=== PATIENT | female | born 1950 | race Caucasian/White ===

== ENCOUNTER 2017-02-14 12:52 | Emergency (ER) | payer MEDICARE, OTHER ==
[2017-02-14 12:53] VITALS: BMI 23.8
[2017-02-14] MEDS ORDERED: Naproxen 550 mg Tab PO STA (13:12)
--- NOTE | 2017-02-14 13:19 | ED PDOC ---
Arrival/HPI - General Chief Complaint: Lower Extremity Problem/Injury Time Seen by Provider: 02/14/17 13:08 Historian: Patient - History of Present Illness Narrative History of Present Illness (Text): 02/14/17 13:08 Cehtna Johansen is a 66 year old female who presents to the emergency department complaining of right foot pain after she hit it against a wall yesterday. Patient indicates that her pain localizes to her right 4th toe. Patient has no other complaints at this time. PMD: Dr. Rocha Time/Duration: 24 hours Symptom Onset: Gradual Symptom Course: Unchanged Severity Level: Mild Activities at Onset: Light Context: Home Past Medical History - Provider Review Nursing Documentation Reviewed: Yes - Infectious Disease Hx of Infectious Diseases: None - Tetanus Immunization Tetanus Immunization: Unknown - Cardiac Hx Cardiac Disorders: Yes Hx Hypertension: Yes - Pulmonary Hx Respiratory Disorders: Yes Hx Asthma: Yes Hx Bronchitis: Yes Hx Pneumonia: Yes - Neurological Hx Neurological Disorder: No - HEENT Hx HEENT Disorder: No (WEARS RX GLASSES) - Renal Hx Renal Disorder: No - Endocrine/Metabolic Hx Endocrine Disorders: No - Hematological/Oncological Hx Blood Disorders: No - Integumentary Hx Dermatological Disorder: No - Musculoskeletal/Rheumatological Hx Musculoskeletal Disorders: No Hx Falls: No - Gastrointestinal Hx Gastrointestinal Disorders: Yes (GI BLEED,COLITIS) - Genitourinary/Gynecological Hx Genitourinary Disorders: No (C SECTION X 2, TUBAL LIGATION) - Psychiatric Hx Psychophysiologic Disorder: No Hx Substance Use: No - Surgical History Hx Section: Yes Other/Comment: X 2 - Anesthesia Hx Anesthesia: Yes Hx Anesthesia Reactions: No Hx Malignant Hyperthermia: No - Suicidal Assessment Feels Threatened In Home Enviroment: No Family/Social History - Physician Review Nursing Documentation Reviewed: Yes Family/Social History: No Known Family HX Smoking Status: Light Smoker < 10 Cigarettes Daily Hx Alcohol Use: No Hx Substance Use: No Hx Substance Use Treatment: Yes Allergies/Home Meds Allergies/Adverse Reactions: Allergies No Known Allergies Allergy (Verified 02/14/17 13:03) Review of Systems - Physician Review All systems were reviewed & negative as marked: Yes - Review of Systems Constitutional: absent: Fevers, Night Sweats Eyes: absent: Vision Changes ENT: absent: Hearing Changes Respiratory: absent: SOB, Cough Cardiovascular: absent: Chest Pain Gastrointestinal: absent: Abdominal Pain Genitourinary Female: absent: Dysuria Musculoskeletal: Other (Right 4th toe pain). absent: Arthralgias Skin: absent: Rash, Pruritis Neurological: absent: Headache Endocrine: absent: Diaphoresis Hemo/Lymphatic: absent: Adenopathy Psychiatric: absent: Depression Physical Exam Vital Signs Reviewed: Yes Vital Signs Temp Pulse Resp BP Pulse Ox 02/14/17 13:02 98.8 F 79 16 169/120 H 97 Temperature: Afebrile Blood Pressure: Hypertensive Pulse: Regular Respiratory Rate: Normal Appearance: Positive for: Well-Appearing, Non-Toxic, Comfortable Pain Distress: None Mental Status: Positive for: Alert and Oriented X 3 - Systems Exam Head: Present: Atraumatic, Normocephalic Pupils: Present: PERRL Extroacular Muscles: Present: EOMI Conjunctiva: Present: Normal Mouth: Present: Moist Mucous Membranes Neck: Present: Normal Range of Motion Respiratory/Chest: Present: Clear to Auscultation, Good Air Exchange. No: Respiratory Distress, Accessory Muscle Use Cardiovascular: Present: Regular Rate and Rhythm, Normal S1, S2. No: Murmurs Abdomen: Present: Normal Bowel Sounds. No: Tenderness, Distention, Peritoneal Signs Back: Present: Normal Inspection Upper Extremity: Present: Normal Inspection. No: Cyanosis, Edema Lower Extremity: Present: Swelling (swelling to right 4th two with ecchymosis and tenderness) Neurological: Present: GCS=15, CN II-XII Intact, Speech Normal Skin: Present: Warm, Dry, Normal Color. No: Rashes Psychiatric: Present: Alert, Oriented x 3, Normal Insight, Normal Concentration Medical Decision Making ED Course and Treatment: 02/14/17 13:28 Impression: 66 year old female complaining of right 4th toe pain since yesterday. Differential Diagnosis include but are not limited to: Plan: -- Right Foot X-ray -- Anaprox -- Reassess and disposition Prior Visits: Notes and results from previous visits were reviewed. Patient last seen in ED on 11/17/14 for worsening wheezing for one week. Patient was admitted to hospitalist care for further evaluation. Progress Notes: - RAD Interpretation Radiology Orders: 02/14/17 13:12 FOOT RIGHT 3 VIEWS ROUTINE [RAD] Stat - Medication Orders Current Medication Orders: Discontinued Medications Naproxen (Anaprox Ds) 550 mg PO STAT STA Stop: 02/14/17 13:13 Last Admin: 02/14/17 13:41 Dose: 550 mg - Scribe Statement The provider has reviewed the documentation as recorded by the Sharda Marin Provider Scribe Attestation: All medical record entries made by the Scribe were at my direction and personally dictated by me. I have reviewed the chart and agree that the record accurately reflects my personal performance of the history, physical exam, medical decision making, and the department course for this patient. I have also personally directed, reviewed, and agree with the discharge instructions and disposition. Disposition/Present on Arrival - Present on Arrival Any Indicators Present on Arrival: No History of DVT/PE: No History of Uncontrolled Diabetes: No Urinary Catheter: No History of Decub. Ulcer: No History Surgical Site Infection Following: None - Disposition Have Diagnosis and Disposition been Completed?: Yes Diagnosis: Toe sprain Disposition: HOME/ ROUTINE Disposition Time: 02:00 Patient Problems: Current Active Problems Problem Status Onset Toe sprain Acute Condition: STABLE Discharge Instructions (ExitCare): Foot Sprain (ED) Additional Instructions: please follow up wiht your doctor and specialist. return to er with worsening symptoms or concerns. Prescriptions: Naproxen 500 mg PO BID PRN #14 tab PRN Reason: Pain, Mild (1-3) Referrals: Aj OREILLY,Ad Hunter MD [Primary Care Provider] - Follow up with primary Cary Driver DPM [Staff Provider] - Follow up with primary
--- NOTE | 2017-02-14 13:47 | RAD ---
PROCEDURE: Right Foot Radiographs. HISTORY: trauma COMPARISON: None. FINDINGS: BONES: Normal. No fracture. JOINTS: Normal. SOFT TISSUES: Normal. OTHER FINDINGS: None. IMPRESSION: No acute findings
[2017-02-14 14:03] VITALS: BP 148/52; PULSE 75; RESP 20; TEMP 98.3; O2SAT 98
== END 2017-02-14 14:03 | disposition home or self-care (01) ==
LOC: ED 12:52
DX: S93.504A Unspecified sprain of right lesser toe(s), initial encounter (principal); W22.01XA Walked into wall, initial encounter; Y92.009 Unspecified place in unspecified non-institutional (private) residence as the place of occurrence of the external cause

== ENCOUNTER 2017-10-12 11:16 | Emergency (ER) | payer MEDICARE ==
[2017-10-12 11:44] VITALS: RESP 18; BMI 26.5
[2017-10-12] MEDS ORDERED: Magnesium Sulfate 1 gm in D5W 1 GM/100 ML BAG IVPB ONE (12:03)
[2017-10-12] MEDS ORDERED: guaiFENesin DM 200 mg-20 mg/10 ml UD PO PRN (12:04)
--- NOTE | 2017-10-12 12:11 | ED PDOC ---
Arrival/HPI - General Chief Complaint: Shortness Of Breath Time Seen by Provider: 10/12/17 11:41 Historian: Patient - History of Present Illness Narrative History of Present Illness (Text): 10/12/17 12:06 Pt p/w + ~ 2 weeks onset of persistent sob/worsening coughing, with productive white sputum, non-bloody; pt states + sick contact 2-3 weeks ago; pt states no fever/chills/sweats, + left chest pain/arm pain; pt states + sob intermittently , no abd pain, no n/v, no numbness/tingling, no urinary/bowel changes; pt denied rashes; pt seen her PCP, Dr Rocha last week and started patient on steriods and NSIADS, pt states medications are not helping; pt states no loc, no fall/trauma/travel; pt is here for further eval; pt's without other complaints. PCP: Rodger Rocha Time/Duration: > week (2 weeks) Symptom Onset: Gradual Symptom Course: Worsening Quality: Tightness, Stabbing Severity Level: 7, Severe Activities at Onset: Rest Context: Home Past Medical History - Provider Review Nursing Documentation Reviewed: Yes - Travel History Have you recently traveled outside [place] w/in the past 3 mons?: No - Past History Past History: No Previous - Infectious Disease Hx of Infectious Diseases: None - Tetanus Immunization Tetanus Immunization: Unknown - Reproductive Menopause: Yes - Cardiac Hx Cardiac Disorders: Yes Hx Hypertension: Yes - Pulmonary Hx Respiratory Disorders: Yes Hx Asthma: Yes Hx Bronchitis: Yes Hx Pneumonia: Yes - Neurological Hx Neurological Disorder: No - HEENT Hx HEENT Disorder: No (WEARS RX GLASSES) - Renal Hx Renal Disorder: No - Endocrine/Metabolic Hx Endocrine Disorders: No - Hematological/Oncological Hx Blood Disorders: No - Integumentary Hx Dermatological Disorder: No - Musculoskeletal/Rheumatological Hx Musculoskeletal Disorders: No Hx Falls: No - Gastrointestinal Hx Gastrointestinal Disorders: Yes (GI BLEED,COLITIS) - Genitourinary/Gynecological Hx Genitourinary Disorders: No (C SECTION X 2, TUBAL LIGATION) - Psychiatric Hx Psychophysiologic Disorder: No Hx Substance Use: No - Surgical History Hx Section: Yes Other/Comment: X 2 - Anesthesia Hx Anesthesia: Yes Hx Anesthesia Reactions: No Hx Malignant Hyperthermia: No - Suicidal Assessment Feels Threatened In Home Enviroment: No Family/Social History - Physician Review Nursing Documentation Reviewed: Yes Family/Social History: No Known Family HX Smoking Status: Light Smoker < 10 Cigarettes Daily Hx Alcohol Use: No Hx Substance Use: No Hx Substance Use Treatment: Yes Allergies/Home Meds Allergies/Adverse Reactions: Allergies No Known Allergies Allergy (Verified 02/14/17 13:03) Review of Systems - Review of Systems Constitutional: Normal Eyes: Normal ENT: Normal Respiratory: SOB, Cough, Sputum, Wheezing Cardiovascular: Chest Pain Gastrointestinal: Normal Genitourinary Female: Normal Musculoskeletal: Normal Skin: Normal Neurological: Normal Endocrine: Normal Hemo/Lymphatic: Normal Psychiatric: Normal Physical Exam Vital Signs Reviewed: Yes Vital Signs Temp Pulse Resp BP Pulse Ox 10/12/17 14:44 100.3 F H 85 18 176/104 H 94 L 10/12/17 11:44 99.4 F 94 H 18 112/64 100 10/12/17 11:42 99.7 F H 92 H 20 175/94 H 97 Temperature: Afebrile Blood Pressure: Hypertensive Pulse: Regular Respiratory Rate: Tachypneic Appearance: Positive for: Well-Appearing, Other (uncomfortable, + persistent coughing with intermittent productive sputum; alert/awake, mild distress due to sob, cooperative, follows command with ease) Pain Distress: Mild Mental Status: Positive for: Alert and Oriented X 3 - Systems Exam Head: Present: Atraumatic, Normocephalic, Other (mild bi-temporal wasting) Pupils: Present: PERRL, Other (no nystagmus, no photophobia, sclera anicteric) Extroacular Muscles: Present: EOMI Conjunctiva: Present: Normal Ears: Present: Normal Mouth: Present: Moist Mucous Membranes, Normal Teeth, Other (no drooling/stridor , no exudate/lesions) Pharnyx: Present: Normal Nose (External): Present: Atraumatic Nose (Internal): Present: Normal Inspection Neck: Present: Normal Range of Motion, Trachea Midline, Other (no meningeal signs, no midline tenderness, no step off). No: MIDLINE TENDERNESS Respiratory/Chest: Present: Other (+ wheezing b/l, + sob, no rales/rhonchi, no accessory muscle use noted, no retractions, + mild tachypenia; fair aiwary exchange) Cardiovascular: Present: Regular Rate and Rhythm, Normal S1, S2, Other (no murmur) Abdomen: Present: Normal Bowel Sounds, Other (well nourished female, no focal tenderness, no masses/rebound/guarding/rigidity, no walker's sign, no mcburney' s point tenderness) Back: Present: Normal Inspection. No: Midline Tenderness Upper Extremity: Present: Normal Inspection, NORMAL PULSES, Neurovascularly Intact, Capillary Refill < 2s, Other (decr ROM to left shoulder, + diffuse tenderness is noted, strength 5/5 grossly intact in all limbs, neurovasc intact b/l) Lower Extremity: Present: Normal Inspection, NORMAL PULSES, Normal ROM, Neurovascularly Intact, Capillary Refill < 2 s. No: CALF TENDERNESS, Tenderness , Swelling Neurological: Present: GCS=15, CN II-XII Intact, Speech Normal Skin: Present: Warm, Normal Color, Other (cap refill < 1sec, no ulcerations, no petechiae) Psychiatric: Present: Alert, Oriented x 3, Normal Insight Medical Decision Making ED Course and Treatment: 10/12/17 12:14 Impression: sob, coughing, wheezing, chest pain i have consider all the differential diagnosis regarding pt's chief medical complaints/clinical findings, including but are not limited to: r/o ACS, r/o infectious A/P: chest pain, sob - labs - iv - acs eval - xray - observe - supportive care 10/12/17 1300 after treatments, pt's breathing appearing easier, pt felt some improvement due to pt's symptoms, recommended patient for admission pt refused pt states she has to care for her sick pt would like to AMA pt states she wants to leave AMA she is aware that potential life-threatening illness remains and pt can lose limb/or worse case, can Patient is aware that if she changes her mind, she is encouraged to return to ED immediately for further care/management 14:25 - i spoke to Dr Rocha, pt's PCP, made aware of pt's ED presentation, medical complaints, will f/u with patient in the morning, agrees with ED mgt/txt Re-evaluation Time: 13:31 Reassessment Condition: Improving,but remains with symptoms - Lab Interpretations Lab Results: 10/12/17 12:35 10/12/17 12:35 Lab Results 10/12/17 12:35: Sodium 142, Chloride 103, Potassium 4.0, Carbon Dioxide 28, Anion Gap 14, BUN 22 H, Creatinine 0.8, Est GFR ( Amer) > 60, Est GFR ( Non-Af Amer) > 60, Random Glucose 79, Calcium 9.3, Total Bilirubin 0.7, AST 24, ALT 23, Alkaline Phosphatase 61, Lactate Dehydrogenase 428, Total Creatine Kinase 50, Troponin I < 0.01, NT-Pro-B Natriuret Pep 316, Total Protein 6.8, Albumin 4.1, Globulin 2.7, Albumin/Globulin Ratio 1.5 10/12/17 12:35: pO2 31, VBG pH 7.36, VBG pCO2 61.0 H, VBG HCO3 34.5 H, VBG Total CO2 36.4 H, VBG O2 Sat (Calc) 62.5, VBG Base Excess 7.0 H, VBG Potassium 4.4, Sodium 138.0, Chloride 104.0, Glucose 80, Lactate 1.8, FiO2 21.0, Venous Blood Potassium 4.4 10/12/17 12:35: WBC 12.4 H, RBC 4.78, Hgb 14.7, Hct 45.0, MCV 94.1, MCH 30.8, MCHC 32.7, RDW 13.6, Plt Count 274, MPV 9.4, Gran % 55.8, Lymph % (Auto) 39.2 H , Ness % (Auto) 4.7, Eos % (Auto) 0.2 L, Baso % (Auto) 0.1, Gran # 6.92 H, Lymph # (Auto) 4.9 H, Ness # (Auto) 0.6, Eos # (Auto) 0.0, Baso # (Auto) 0.01 I have reviewed the lab results: Yes Interpretation: Abnormal lab values (mildly elevated WBCs) - RAD Interpretation Narrative RAD Interpretations (Text): 10/12/17 15:02 HISTORY: sob, cough COMPARISON: 11/17/2014 TECHNIQUE: Chest PA and lateral FINDINGS: LUNGS: No active pulmonary disease. PLEURA: No significant pleural effusion identified. No pneumothorax apparent. CARDIOVASCULAR: Normal. OSSEOUS STRUCTURES: No significant abnormalities. VISUALIZED UPPER ABDOMEN: Normal. OTHER FINDINGS: None. IMPRESSION: No active disease. Radiology Orders: 10/12/17 12:01 CHEST TWO VIEWS (PA/LAT) [RAD] Stat Denier Control Operator: Radiologist - EKG Interpretation EKG Interpretation (Text): 10/12/17 12:15 NSR at 90 BPM, normal axis, no ectopy, no st-t changes, NORMAL EKG; unchanged compare with old ekg 10/2014 Interpreted by ED Physician: Yes Type: 12 lead EKG Comparison: Similar to previous EKG - Medication Orders Current Medication Orders: Guaifenesin/Dextromethorphan (Robitussin Dm) 10 ml PO Q4H PRN PRN Reason: Cough Last Admin: 10/12/17 12:35 Dose: 10 ml Discontinued Medications Acetaminophen (Tylenol 325mg Tab) 975 mg PO STAT STA Stop: 10/12/17 14:46 Albuterol/Ipratropium (Duoneb 3 Mg/0.5 Mg (3 Ml) Ud) 3 ml IH Q15M XAVI Stop: 10/12/17 12:46 Last Admin: 10/12/17 12:35 Dose: 3 ml Aspirin (Aspirin Chewable) 81 mg PO STAT STA Stop: 10/12/17 12:05 Last Admin: 10/12/17 12:35 Dose: 81 mg Magnesium Sulfate/Dextrose (Magnesium Sulfate 1 Gm/100 Ml D5w) 1 gm in 100 mls @ 100 mls/hr IVPB ONCE ONE Stop: 10/12/17 13:02 Last Admin: 10/12/17 12:34 Dose: 100 mls/hr eMAR Start Stop Document 10/12/17 12:34 GMD (Rec: 10/12/17 12:34 GMD [id number]) Intravenous Solution Start Date 10/12/17 Start Time 12:34 End Date 10/12/17 End time 13:34 Total Infusion Time 60 Methylprednisolone (Solu-Medrol) 125 mg IVP STAT STA Stop: 10/12/17 12:04 Last Admin: 10/12/17 12:34 Dose: 125 mg IVP Administration Document 10/12/17 12:34 GMD (Rec: 10/12/17 12:34 GMD [id number]) Charges for Administration # of IVP Administrations 1 Disposition/Present on Arrival - Present on Arrival Any Indicators Present on Arrival: No History of DVT/PE: No History of Uncontrolled Diabetes: No Urinary Catheter: No History of Decub. Ulcer: No History Surgical Site Infection Following: None - Disposition Have Diagnosis and Disposition been Completed?: Yes Diagnosis: COPD exacerbation, Bronchitis, Shortness of breath Disposition: AGAINST MEDICAL ADVICE Disposition Time: 13:32 Patient Plan: Other (AGAINST MEDICAL ADVICE) Patient Problems: Current Active Problems Problem Status Onset Bronchitis Acute COPD exacerbation Acute Shortness of breath Acute Condition: STABLE Discharge Instructions (ExitCare): Acute Bronchitis, COPD Including Emphysema ( DC), Shortness of Breath (Dyspnea) (DC) Print Language: MARSHALLESE Additional Instructions: You need to see your doctor as soon as possible you are leaving against medical advice potential life-threatening illness remains and pt can lose limb/or worse case, can you are to see your doctor as soon as possible if you change your mind, you are encouraged to return to ED immediately for further care/management Prescriptions: Albuterol HFA [Ventolin HFA 90 mcg/actuation (8 g)] 1 puff IH QID PRN #1 inhaler PRN Reason: Wheezing Azithromycin [Z-Sha] 250 mg PO DAILY #6 tab Referrals: Aj OREILLY,Ad Hunter MD [Primary Care Provider] - Follow up with primary Forms: [employer] (Georgian)
[2017-10-12] MEDS: Albuterol-Ipratrop 3 mg / 0.5 (3 ml) UD IH SCH ×3 (12:35→13:20)
[2017-10-12 12:47] LABS: BASO # 0.01 K/mm3 (0.0-2.0); BASO % 0.1 % (0.0-3.0); EOS % 0.2 % (1.5-5.0); GRAN # 6.92 (1.4-6.5); GRAN % 55.8 % (50.0-68.0); HEMOGLOBIN 14.7 g/dL (12.0-16.0); LYMPH # 4.9 (1.2-3.4); LYMPH % 39.2 % (22.0-35.0); MEAN CELL VOLUME 94.1 fl (80.0-105.0); MEAN CORPUSCULAR HEMOGLOBIN 30.8 pg (25.0-35.0); MEAN CORPUSCULAR HGB CONC 32.7 g/dl (31.0-37.0); MEAN PLATELET VOLUME 9.4 fl (7.0-11.0); MONO # 0.6 (0.1-0.6); MONO % 4.7 % (1.0-6.0); RBC 4.78 10^6/uL (3.5-6.1); RED CELL DISTRIBUTION WIDTH 13.6 % (11.5-14.5); VENOUS BLOOD GAS PO2 31 mm/Hg (30-55); VENOUS BLOOD PH 7.36 (7.32-7.43); WHITE BLOOD COUNT 12.4 10^3/ul (4.5-11.0)
[2017-10-12 12:56] LABS: ALB/GLOB RATIO 1.5 (1.1-1.8); ALBUMIN 4.1 g/dL (3.0-4.8); ALT/SGPT 23 U/L (7-56); AST/SGOT 24 U/L (14-36); BLOOD UREA NITROGEN 22 mg/dL (7-21); CALCIUM 9.3 mg/dL (8.4-10.5); GFR AFRICAN-AMERICAN > 60; GFR NON-AFRICAN AMERICAN > 60
[2017-10-12 13:08] LABS: B-TYPE NATRIURETIC PEPTIDE 316 pg/mL (0-450); TROPONIN I < 0.01 ng/mL
[2017-10-12 14:22] LABS: URINE BILIRUBIN NEGATIVE (NEGATIVE); URINE BLOOD SMALL (NEGATIVE); URINE GLUCOSE (UA) NEGATIVE (NEGATIVE); URINE LEUKOCYTE ESTERASE NEGATIVE Leu/uL (NEGATIVE); URINE NITRATE NEGATIVE (NEGATIVE); URINE PROTEIN NEGATIVE mg/dL (<30 mg/dL); URINE UROBILINOGEN 0.2 E.U./dL (<1 E.U./dL)
[2017-10-12 14:53] LABS: URINE APPEARANCE CLEAR (CLEAR); URINE COLOR LIGHT YELLOW (YELLOW)
--- NOTE | 2017-10-12 14:54 | RAD ---
HISTORY: sob, cough COMPARISON: 11/17/2014 TECHNIQUE: Chest PA and lateral FINDINGS: LUNGS: No active pulmonary disease. PLEURA: No significant pleural effusion identified. No pneumothorax apparent. CARDIOVASCULAR: Normal. OSSEOUS STRUCTURES: No significant abnormalities. VISUALIZED UPPER ABDOMEN: Normal. OTHER FINDINGS: None. IMPRESSION: No active disease.
[2017-10-12 14:55] LABS: URINE WBC NEGATIVE /hpf (0-6)
[2017-10-12 15:29] VITALS: BP 144/92; O2SAT 96
[2017-10-12 15:56] VITALS: PULSE 83; TEMP 99.1
--- NOTE | 2017-10-12 21:23 | CARD ---
APPROVED REPORT EKG Measurement Heart [id number] <Conclusion> Normal sinus rhythm Normal ECG
== END 2017-10-12 16:06 | disposition left against medical advice (07) ==
LOC: ED 11:16
DX: J44.1 Chronic obstructive pulmonary disease with (acute) exacerbation (principal); J40 Bronchitis, not specified as acute or chronic; R06.02 Shortness of breath; I10 Essential (primary) hypertension; F17.210 Nicotine dependence, cigarettes, uncomplicated
CPT/HCPCS: 71046; 80053; 81001; 82550; 82803; 83615; 83880; 84484; 85025; 93005; 96365; 96375; 99284; J2930; J3475

== ENCOUNTER 2018-01-04 15:31 | Emergency (ER) | payer MEDICARE ==
[2018-01-04 15:31] VITALS: BMI 26.5
[2018-01-04 16:05] VITALS: TEMP 98.2; O2SAT 96
--- NOTE | 2018-01-04 16:59 | ED PDOC ---
Arrival/HPI - General Chief Complaint: Upper Extremity Problem/Injury Time Seen by Provider: 01/04/18 15:44 Historian: Patient, Family - History of Present Illness Narrative History of Present Illness (Text): 01/04/18 16:48 67-year-old female presents today with a 3 month history of left arm pain. Patient states that the pain is worse first thing in the morning. Patient states she has pain and stiffness in the arm. 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 Patient states 3 months ago she was seen by her primary care physician and was given 800 mg of Motrin for the pain. Patient states the pain has not improved. She denies any recent trauma or injury. She denies chest pain or shortness of breath. She denies fevers or chills. Patient states occasionally she'll get pain in the left side of the neck that radiates into the shoulder. Patient states the majority of the pain is localized to the lateral aspect of the humerus. Patient denies numbness weakness or tingling in the extremity. Patient denies radiation of pain into the chest. Patient denies any other complaints Time/Duration: > month (3 months) Quality: Aching, Stabbing Severity Level: Mild Past Medical History - Provider Review Nursing Documentation Reviewed: Yes - Travel History Have you recently traveled outside [place] w/in the past 3 mons?: No - Past History Past History: No Previous - Infectious Disease Hx of Infectious Diseases: None - Tetanus Immunization Tetanus Immunization: Unknown - Cardiac Hx Cardiac Disorders: Yes Hx Hypertension: Yes - Pulmonary Hx Respiratory Disorders: Yes Hx Asthma: Yes Hx Bronchitis: Yes Hx Pneumonia: Yes - Neurological Hx Neurological Disorder: No - HEENT Hx HEENT Disorder: No (WEARS RX GLASSES) - Renal Hx Renal Disorder: No - Endocrine/Metabolic Hx Endocrine Disorders: No - Hematological/Oncological Hx Blood Disorders: No - Integumentary Hx Dermatological Disorder: No - Musculoskeletal/Rheumatological Hx Musculoskeletal Disorders: No Hx Falls: No - Gastrointestinal Hx Gastrointestinal Disorders: Yes (GI BLEED,COLITIS) - Genitourinary/Gynecological Hx Genitourinary Disorders: No (C SECTION X 2, TUBAL LIGATION) - Psychiatric Hx Psychophysiologic Disorder: No Hx Substance Use: No - Surgical History Hx Section: Yes Other/Comment: X 2 - Anesthesia Hx Anesthesia: Yes Hx Anesthesia Reactions: No Hx Malignant Hyperthermia: No - Suicidal Assessment Feels Threatened In Home Enviroment: No Family/Social History - Physician Review Nursing Documentation Reviewed: Yes Family/Social History: Unknown Family HX Smoking Status: Light Smoker < 10 Cigarettes Daily Hx Alcohol Use: No Hx Substance Use: No Hx Substance Use Treatment: Yes Allergies/Home Meds Allergies/Adverse Reactions: Allergies No Known Allergies Allergy (Verified 01/04/18 16:04) Review of Systems - Review of Systems Constitutional: absent: Fatigue, Fevers Respiratory: absent: SOB, Cough Cardiovascular: absent: Chest Pain, Palpitations Gastrointestinal: absent: Abdominal Pain, Nausea, Vomiting Musculoskeletal: Arthralgias. absent: Neck Pain Skin: absent: Rash, Pruritis Neurological: absent: Headache, Dizziness Physical Exam Vital Signs Reviewed: Yes Vital Signs Temp Pulse Resp BP Pulse Ox 01/04/18 16:00 98.2 F 76 17 177/89 H 96 Temperature: Afebrile Blood Pressure: Hypertensive Pulse: Regular Respiratory Rate: Normal Appearance: Positive for: Well-Appearing, Non-Toxic, Comfortable Pain Distress: None Mental Status: Positive for: Alert and Oriented X 3 - Systems Exam Head: Present: Atraumatic Mouth: Present: Moist Mucous Membranes Neck: Present: Normal Range of Motion, Trachea Midline, Other (+ minimal left sided trapezius tenderness; ). No: MIDLINE TENDERNESS, Paraspinal Tenderness Respiratory/Chest: Present: Clear to Auscultation, Good Air Exchange. No: Respiratory Distress, Accessory Muscle Use Cardiovascular: Present: Regular Rate and Rhythm, Normal S1, S2. No: Murmurs Back: Present: Normal Inspection. No: Midline Tenderness, Paraspinal Tenderness Upper Extremity: Present: Normal Inspection, Normal ROM, NORMAL PULSES, Neurovascularly Intact, Capillary Refill < 2s. No: Tenderness, Swelling, Erythema, Deformity Neurological: Present: GCS=15, Speech Normal, Motor Func Grossly Intact, Normal Sensory Function Skin: Present: Warm, Dry, Normal Color Psychiatric: Present: Alert, Oriented x 3 Medical Decision Making ED Course and Treatment: 01/04/18 17:35 57-year-old female presents with a 3 month history of left arm pain. Motrin by mouth Flexeril by mouth Cervical spine CAT scan:FINDINGS: VERTEBRAE: No acute compression fractures no retropulsed fragments. Vertebral bodies exhibit normal stature. There is straightening of the normal cervical lordosis which could be secondary to patient positioning gantry however underlying element of muscle spasm may contribute. Vertebral bodies otherwise exhibit normal alignment. Facets normally aligned. DISCS/SPINAL CANAL/NEURAL FORAMINA: Minor multilevel degenerative spondylosis. At the C2-C3 level, there is relatively adequate disc height. No disc herniation or significant disc bulge. Central canal and exit foramina adequate. At the C3-C4 level, there is also a relatively adequate disc height. Small marginal anterior osteophyte formation. . There is a tiny left parasagittal and slightly central disc bulges at indents the ventral surface of the thecal sac and appears to reach the ventral surface of the cord. Central canal is marginal to adequate. Minimal degenerative squaring of the uncovertebral joints more so on the left side. The facets are hypertrophic on the left side as well. Central canal adequate. Exit foramina are marginal to minimally narrowed on the left and marginal to adequate on the right. At the C4-C5 level, there is adequate disc height. No disc herniation or significant disc bulge. The uncovertebral joints exhibit mild degenerative squaring. Facets also mildly hypertrophic left greater than right. Central canal adequate. Exit foramina are narrowed on the left and marginal to minimally narrowed on the right. At the C5-C6 level, there is adequate disc height. No disc herniation or significant disc bulge. The uncovertebral facets are hypertrophic. Central canal appears adequate. Exit foramina are adequate on the left and narrowed on the right. At the C6-C7 level, there is mild disc space narrowing. Small irregular disc ridge complex results in some irregular compressive effects on the ventral surface of the thecal sac however the overall central canal appears adequate. The uncovertebral and facets are mildly overgrown. Exit foramina appear narrowed bilaterally more so on the left side. PARASPINAL SOFT TISSUES: Unremarkable. Enlargement of the thyroid gland particularly the right lobe with substernal extension. Thyroid ultrasound followup recommended. OTHER FINDINGS: Mild biapical pleural thickening and parenchymal scarring. . There is a small approximately 2.9 nodular density right lung apex with another pleural-based nodular density measuring 1.75 mm along the posterior pleural surface. Recommend followup nonemergent CT scan of the chest for further evaluation. IMPRESSION: No acute fractures. Minor multilevel degenerative spondylosis. Enlarged thyroid gland right lobe greater than left. Recommend followup thyroid ultrasound. There are 2 small nodular densities seen in the right lung apex. . Mild biapical pleural thickening and parenchymal scarring. Follow-up nonemergent CT scan of the chest recommended for further evaluation. X-ray left shoulder: No fracture X-ray left humerus: No fracture Patient reassessment: Patient nontoxic well-appearing no distress resting comfortably. Patient feeling better after medications for range of motion of the left arm. I discussed all results and after the patient and her son. I stressed the importance of follow-up with the orthopedist and primary care physician within the next 2 days. Advised immediate return if symptoms worsen persist or if new concerning symptoms develop I advised both the patient and her son of enlarged thyroid found on CAT scan and the need for follow-up with a primary care physician for thyroid ultrasound. I've also advised the patient and her son of nodular densities in the right lung apex requiring outpatient CAT scan of the chest for further evaluation. I stressed the importance of immediate follow-up with the primary care physician to address these abnormal findings. copy of patients CT report was given to patient to bring to PMD for follow up. Patient verbalizes understanding of discharge instructions and need for immediate followup. all aspects of this case were discussed the attending of record. Impression: Left arm pain, enlarged thyroid gland, lung nodules Motrin every 6 hours as needed for pain Flexeril one tablet every 8 hours as needed for muscle spasms: May cause drowsiness Follow-up with the orthopedist within the next 2 days Follow-up the primary care physician within the next 2 days Return immediately if symptoms worsen persist or if new concerning symptoms develop Reassessment Condition: Re-examined, Improved - RAD Interpretation Radiology Orders: 01/04/18 16:35 CERVICAL SPINE W/O CONTRAST [CT] Stat 01/04/18 16:36 HUMERUS LEFT [RAD] Stat SHOULDER LEFT [RAD] Stat - Medication Orders Current Medication Orders: Discontinued Medications Cyclobenzaprine HCl (Flexeril) 10 mg PO STAT STA Stop: 01/04/18 16:39 Last Admin: 01/04/18 17:29 Dose: 10 mg Ibuprofen (Motrin Tab) 600 mg PO STAT STA Stop: 01/04/18 16:39 Last Admin: 01/04/18 17:29 Dose: 600 mg MAR Pain/Vitals Document 01/04/18 17:29 EQ (Rec: 01/04/18 17:29 EQ [id number]) Pain Reassessment Is This A Pain ReAssessment? No Sleep Is patient sleeping during reassessment? No Presence of Pain Presence of Pain Yes Disposition/Present on Arrival - Present on Arrival Any Indicators Present on Arrival: No History of DVT/PE: No History of Uncontrolled Diabetes: No Urinary Catheter: No History of Decub. Ulcer: No History Surgical Site Infection Following: None - Disposition Have Diagnosis and Disposition been Completed?: Yes Diagnosis: Arm pain, Lung nodule, Enlarged thyroid Disposition: HOME/ ROUTINE Disposition Time: 19:01 Patient Plan: Discharge Patient Problems: Current Active Problems Problem Status Onset Arm pain Acute Enlarged thyroid Acute Lung nodule Acute Condition: GOOD Discharge Instructions (ExitCare): Muscle and Bone Pain (DC), Pulmonary Nodule Additional Instructions: Motrin every 6 hours as needed for pain Flexeril one tablet every 8 hours as needed for muscle spasms: May cause drowsiness Follow-up with the orthopedist within the next 2 days Follow-up the primary care physician within the next 2 days regarding enlarged thyroid and lung nodules Return immediately if symptoms worsen persist or if new concerning symptoms develop Prescriptions: Cyclobenzaprine [Cyclobenzaprine HCl] 10 mg PO Q8 #10 tab Ibuprofen [Motrin] 600 mg PO Q6H PRN #20 tab PRN Reason: pain/fever reduction Referrals: Aj OREILLY,Ad Hunter MD [Primary Care Provider] - Follow up with primary Nicholas Marquez III, MD [Medical Doctor] - Follow up with primary Lee Fierro DO [Staff Provider] - Follow up with primary Darryn Schwartz MD [Staff Provider] - Follow up with primary Forms: [employer] ([place]vian)
--- NOTE | 2018-01-04 18:21 | CT ---
PROCEDURE: CT Cervical Spine without contrast HISTORY: 3 months left shoulder/arm pain radiating from neck COMPARISON: None available. TECHNIQUE: Axial computed tomography images were obtained of the cervical spine without the use of intravenous contrast. Coronal and sagittal reformatted images were created and reviewed. Radiation dose: Total exam DLP = 570.14 mGy-cm. This CT exam was performed using one or more of the following dose reduction techniques: Automated exposure control, adjustment of the mA and/or kV according to patient size, and/or use of iterative reconstruction technique. . FINDINGS: VERTEBRAE: No acute compression fractures no retropulsed fragments. Vertebral bodies exhibit normal stature. There is straightening of the normal cervical lordosis which could be secondary to patient positioning gantry however underlying element of muscle spasm may contribute. Vertebral bodies otherwise exhibit normal alignment. Facets normally aligned. DISCS/SPINAL CANAL/NEURAL FORAMINA: Minor multilevel degenerative spondylosis. At the C2-C3 level, there is relatively adequate disc height. No disc herniation or significant disc bulge. Central canal and exit foramina adequate. At the C3-C4 level, there is also a relatively adequate disc height. Small marginal anterior osteophyte formation. . There is a tiny left parasagittal and slightly central disc bulges at indents the ventral surface of the thecal sac and appears to reach the ventral surface of the cord. Central canal is marginal to adequate. Minimal degenerative squaring of the uncovertebral joints more so on the left side. The facets are hypertrophic on the left side as well. Central canal adequate. Exit foramina are marginal to minimally narrowed on the left and marginal to adequate on the right. At the C4-C5 level, there is adequate disc height. No disc herniation or significant disc bulge. The uncovertebral joints exhibit mild degenerative squaring. Facets also mildly hypertrophic left greater than right. Central canal adequate. Exit foramina are narrowed on the left and marginal to minimally narrowed on the right. At the C5-C6 level, there is adequate disc height. No disc herniation or significant disc bulge. The uncovertebral facets are hypertrophic. Central canal appears adequate. Exit foramina are adequate on the left and narrowed on the right. At the C6-C7 level, there is mild disc space narrowing. Small irregular disc ridge complex results in some irregular compressive effects on the ventral surface of the thecal sac however the overall central canal appears adequate. The uncovertebral and facets are mildly overgrown. Exit foramina appear narrowed bilaterally more so on the left side. PARASPINAL SOFT TISSUES: Unremarkable. Enlargement of the thyroid gland particularly the right lobe with substernal extension. Thyroid ultrasound followup recommended. OTHER FINDINGS: Mild biapical pleural thickening and parenchymal scarring. . There is a small approximately 2.9 nodular density right lung apex with another pleural-based nodular density measuring 1.75 mm along the posterior pleural surface. Recommend followup nonemergent CT scan of the chest for further evaluation. IMPRESSION: No acute fractures. Minor multilevel degenerative spondylosis. Enlarged thyroid gland right lobe greater than left. Recommend followup thyroid ultrasound. There are 2 small nodular densities seen in the right lung apex. . Mild biapical pleural thickening and parenchymal scarring. Follow-up nonemergent CT scan of the chest recommended for further evaluation.
[2018-01-04 21:24] VITALS: BP 153/84; PULSE 71; RESP 18
--- NOTE | 2018-01-05 09:56 | RAD ---
PROCEDURE: Radiographs of the left humerus. HISTORY: left upper arm pain x 3 months COMPARISON: None. FINDINGS: BONES: Normal. No fracture or focal lesion. SOFT TISSUES: Normal. OTHER FINDINGS: None. IMPRESSION: Normal radiographs of left humerus.
--- NOTE | 2018-01-05 09:57 | RAD ---
PROCEDURE: Radiographs of the Left Shoulder HISTORY: shoulder pain x 3 months COMPARISON: No prior. FINDINGS: BONES: Normal. No fracture. JOINTS: Normal. Glenohumeral and acromioclavicular joints preserved. No osteoarthritis. SOFT TISSUES: Normal. OTHER FINDINGS: None. IMPRESSION: Normal radiographs of the left shoulder.
== END 2018-01-04 19:45 | disposition home or self-care (01) ==
LOC: ED 15:31
DX: M79.622 Pain in left upper arm (principal); R91.1 Solitary pulmonary nodule; E04.9 Nontoxic goiter, unspecified; I10 Essential (primary) hypertension; F17.210 Nicotine dependence, cigarettes, uncomplicated

== ENCOUNTER 2018-09-27 12:37 | Emergency (ER) | payer MEDICARE ==
[2018-09-27 12:38] VITALS: BMI 26.5
[2018-09-27 13:39] VITALS: BP 112/71; PULSE 71; RESP 18; TEMP 97.9; O2SAT 97
== END 2018-09-27 15:40 | disposition left against medical advice (07) ==
LOC: ED 12:37
DX: Z02.89 Encounter for other administrative examinations (principal); R53.1 Weakness